=== PATIENT | male | born 1955 | race Caucasian/White ===

== ENCOUNTER → 2019-07-02 | Day surgery (SDC) | payer BC, OTHER ==
[2019-06-28 15:23] LABS: BASOPHILS # (AUTO) 0.2 (0.0-0.1); BASOPHILS % 2.6 % (0.0-1.0); EOSINOPHILS # (AUTO) 0.1 (0.0-0.4); EOSINOPHILS % 1.7 % (0.0-6.0); HEMATOCRIT 44.7 % (38.2-49.6); HEMOGLOBIN 14.1 g/dL (14.0-18.0); LYMPHOCYTES # (AUTO) 2.3 (1.0-3.2); LYMPHOCYTES % 26.6 % (18.0-39.1); MEAN CORPUSCULAR HGB CONC 31.5 g/dL (31-35); MEAN CORPUSCULAR VOLUME 88.7 fL (81-99); MONOCYTES # (AUTO) 0.3 (0.2-0.8); MONOCYTES % 3.7 % (4.4-11.3); NEUTROPHILS # (AUTO) 5.4 (2.1-6.9); NEUTROPHILS % 64.3 % (38.7-80.0); PLATELET COUNT 438 x10e3/uL (140-360); RED BLOOD COUNT 5.04 x10e6/uL (4.3-5.7); RED CELL DISTRIBUTION WIDTH 15.1 % (11.7-14.4)
[2019-06-28 15:46] LABS: ALANINE AMINOTRANSFERASE 28 IU/L (0-55); ALBUMIN 3.5 g/dL (3.5-5.0); ALBUMIN/GLOBULIN RATIO 0.9 (0.8-2.0); ALKALINE PHOSPHATASE 80 IU/L (40-150); ANION GAP 14.3 mmol/L (8-16); BLOOD UREA NITROGEN 15 mg/dL (7-26); BUN/CREATININE RATIO 16 (6-25); CALCIUM 9.7 mg/dL (8.4-10.2); CARBON DIOXIDE 24 mmol/L (22-29); CHLORIDE 108 mmol/L (98-107); CREATININE, SERUM 0.93 mg/dL (0.72-1.25); EST GLOMERULAR FILTRATION RATE > 60 ML/MIN (60-); GLUCOSE 145 mg/dL (74-118); POTASSIUM 4.3 mmol/L (3.5-5.1); SODIUM 142 mmol/L (136-145)
[~2019-07-02] VITALS: Ht 190.5 cm; Wt 165.6 kg
[~2019-07-02] MED LIST: ALPRAZOLAM 0.5 MG TAB ONE; ASPIRIN81 M1; B COMPLEX1 EACH PO; BIOTIN2500 MCG PO; CINNAMON PLUS1 EACH PO; COQ-10100 MG PO; CRANBERRY500 MG PO; DIPHENHYDRAMINE HCL 25 MG CAP ONE; ELDERBERRY FRUIT PO; FENTANYL CITRATE/PF 100MCG/2 ML INJ ONE; FIBER THERAPY PO; FIBER THERAPY500 MG PO; FISH OIL 1,0001 EAC2 PO; FISH OIL PO; FLOMAX0.4 MG PO; GARLIC1 EAC1 PO; GRAPE SEED EXTR50 MG PO; GRAPE SEED EXTRACT PO; HEPARIN SOD/SOD CHLORIDE 2,000 ML ONE; IOPAMIDOL 370 MG/ML 200 ML INFUS..BTL INJ ONE; K2 PO; LIDOCAINE HCL 2% LOCAL 20 ML VIAL ONE; MIDAZOLAM HCL 2 MG/2 ML VIAL ONE; MULTI-VITAMIN1 EACH PO; MULTIVITAMINS1 EAC8 PO; SELENIUM PO; SELENIUM200 MC2 PO; SIMCOR 1,000-41 EACH; SIMVASTATIN40 MG PO; SODIUM CHLORIDE 0.9% 1000ML 1,000 ML ONE; TURMERIC538 MG PO; VERAPAMIL HCL 2.5 MG/ML 2 ML VIAL ONE; VITAMIN B-121000 MCG PO; VITAMIN C1000 MG PO; VITAMIN D35000 UNI1 PO; [UNRECOGNIZED DRUG - OTHER] PO
[2019-07-02 13:00] VITALS: BP 133/75
--- OUTSIDE RECORDS SUMMARY | 2019-07-02 13:51 | XMS REPORT ---
Author Author [facility] Organization [facility] Address Unknown Phone Unavailable Care Team Providers Care Buggyman Name Role Phone Unavailable Unavailable Payers Payer Name Policy Type Policy Number Effective Date Expiration D ate Problems This patient has no known problems. Allergies, Adverse Reactions, Alerts Allergy Name Allergy Type Status Severity Reaction(s) Onset Date Inacti ve Date Treating Clinician Comments No Known Allergies DA Active U 2016-02-02 00:00:00 Medications This patient has no known medications.
--- NOTE | 2019-07-02 15:05 | NUR ---
bedside report received from Alexis Mane RN. Alert oriented and appropriate, PERRLA, respirations even and unlabored to room air. Pulses x4 lower extremities equal and Pedal pulses PT/DP weak and marked. Cap fill brisk < 3 sec. + neurovascular function to right wrist w/ TR band 12ml to bladder Skin warm and dry integrity appears intact. IV 20g to left lateral hand presents healthy w/o s/s of infiltration or complaint. Abdomen soft and supple. pt offered toileting, denies need to urinate or defecate. Personal affects with patient. Family at bedside. Pt and family verbalizes understanding of POC. placed on bedside monitoring Currently w/o complaint of pain or need. Bed low and locked, side rails up x2, and call light within reach -cgf
[2019-07-02 15:15] VITALS: BP 119/80
[2019-07-02 15:30] VITALS: BP 124/77
[2019-07-02 15:45] VITALS: BP 114/78
[2019-07-02 16:00] VITALS: BP 121/78
--- NOTE | 2019-07-02 16:10 | NUR ---
TR band deflated and removed. No gross changes nor presence of hematoma. + neurovascular function present. pt verbalizes understanding of DC instructions
[2019-07-02 16:15] VITALS: BP 119/76
--- NOTE | 2019-07-02 16:15 | NUR ---
Pt meets DC criteria. Right Radial assessed for s/s of complication and presence of hematoma. Overall skin warm, dry, no discolor, and pulses present. IV removed from left hand. Distal tip appears intact. VS WNL. Pt denies pain, sob, or need at this time. Family called to be updated on DC instructions and to pull around to front of facility. Review of discharge paperwork and follow up instructions. verbalized understanding. Pt to wheelchair and transported to front of hospital. Transferred to private vehicle under own strength w/o incident with DC paperwork in hand. - cgf
--- NOTE | 2019-07-02 18:01 | Operative Report ---
DATE OF PROCEDURE: 07/02/2019 SURGEON: Nadeem Lobo MD INDICATION: Coronary artery disease, abnormal stress test, and angina. PROCEDURES PERFORMED: 1. Conscious sedation administration, hemodynamic and neurological management in recovery by cath lab tech RN and supervision by 35 minutes. 2. Left heart catheterization, selective coronary angiography. 3. Ultrasound-guided access in the right radial artery with sheath placement. 4. Deployment of right wrist TR band. COMPLICATIONS: None. BLOOD LOSS: Minimal. RECOMMENDATIONS: Medical therapy. DESCRIPTION OF PROCEDURE: Access obtained in the right radial artery using ultrasound guidance. A 6-Cambodian sheath was placed. Coronary angiography demonstrated minimal coronary artery disease, 10% luminal stenosis, irregularities. No critical stenosis or occlusions were noted. No intervention necessary. Right wrist TR band applied. The patient discharged home same day. Nadeem Lobo MD KSB/MODL /[id number]
== END | disposition home or self-care (01) ==
LOC: CATH LAB 13:49
PROVIDERS: ATTEND Internal Medicine Interventional Cardiology
DX: I25.119 Atherosclerotic heart disease of native coronary artery with unspecified angina pectoris (principal); R94.39 Abnormal result of other cardiovascular function study; Z01.812 Encounter for preprocedural laboratory examination; Z11.59 Encounter for screening for other viral diseases; Z79.82 Long term (current) use of aspirin; Z68.42 Body mass index [BMI] 45.0-49.9, adult; Z82.49 Family history of ischemic heart disease and other diseases of the circulatory system
CPT/HCPCS: 36415; 76937; 80053; 85025; 87635; 93454; J2001; J2250; J3010; J7030; Q9967; 99152; C1887

== ENCOUNTER 2019-12-13 00:48 | Emergency (ER) | payer BC ==
[~2019-12-13] VITALS: Ht 190.5 cm; Wt 165.6 kg
[~2019-12-13 00:48] MED LIST changes: -ALPRAZOLAM 0.5 MG TAB ONE; -DIPHENHYDRAMINE HCL 25 MG CAP ONE; -FENTANYL CITRATE/PF 100MCG/2 ML INJ ONE; -HEPARIN SOD/SOD CHLORIDE 2,000 ML ONE; -IOPAMIDOL 370 MG/ML 200 ML INFUS..BTL INJ ONE; -LIDOCAINE HCL 2% LOCAL 20 ML VIAL ONE; -MIDAZOLAM HCL 2 MG/2 ML VIAL ONE; -SODIUM CHLORIDE 0.9% 1000ML 1,000 ML ONE; -VERAPAMIL HCL 2.5 MG/ML 2 ML VIAL ONE
[2019-12-13] MEDS ORDERED: KETOROLAC TROMETHAMINE 30 MG/ML VIAL IV STA (01:15)
[2019-12-13] MEDS ORDERED: ONDANSETRON HCL INJ 2MG/ML 2ML 2 MG/ML VIAL IV STA (01:15)
[2019-12-13] MEDS ORDERED: ONDANSETRON HCL INJ 2MG/ML 2ML 2 MG/ML VIAL ONE (01:25)
[2019-12-13] MEDS ORDERED: KETOROLAC TROMETHAMINE 30 MG/ML VIAL ONE (01:25)
[2019-12-13] MEDS ORDERED: ZOFRAN4 MG PO (01:42)
[2019-12-13] MEDS ORDERED: TYLENOL # 31 EA PO (01:43)
== END 2019-12-13 02:11 | disposition home or self-care (01) ==
LOC: FSED 01:09
DX: M54.5 Low back pain (principal); N13.2 Hydronephrosis with renal and ureteral calculous obstruction; E78.00 Pure hypercholesterolemia, unspecified
CPT/HCPCS: 74176; 80053; 81003; 85025; 96374; 96376; 99283; J1885; J2405

== ENCOUNTER → 2020-09-24 | Day surgery (SDC) | payer BC ==
[~2020-09-24] MED LIST changes: +BICALUTAMIDE50 MG; +CODEINE SULFATE30 MG PO; +HYDROCODON-ACE1 EA11; +LIDOCAINE HCL 2% LOCAL INJ 5 ML SDV VIAL INJ ONE; +PROPOFOL IV EMULSION 10 MG/ML 20 ML VIAL ONE; +SIMETHICONE 40 MG/0.6 ML BTL ONE; +TYLENOL # 31 EA PO; +ZOFRAN4 MG PO
[2020-09-24 07:25] VITALS: BP 117/71
== END | disposition home or self-care (01) ==
LOC: OR 05:54
PROVIDERS: ATTEND Internal Medicine Gastroenterology
DX: Z86.010 Personal history of colon polyps (principal); K57.30 Diverticulosis of large intestine without perforation or abscess without bleeding; K64.8 Other hemorrhoids; E66.01 Morbid (severe) obesity due to excess calories; Z68.42 Body mass index [BMI] 45.0-49.9, adult; Z71.3 Dietary counseling and surveillance; K80.80 Other cholelithiasis without obstruction; G47.30 Sleep apnea, unspecified; Z01.810 Encounter for preprocedural cardiovascular examination; Z01.812 Encounter for preprocedural laboratory examination; Z20.822 Contact with and (suspected) exposure to COVID-19
CPT/HCPCS: 45378; 93005; J2001; J2704; U0002